=== PATIENT | male | born 1975 | race Caucasian/White ===

== ENCOUNTER 2020-01-02 11:24 | Emergency (ER) | payer BC, OTHER ==
[~2020-01-02] VITALS: Ht 185 cm; Wt 97.5 kg
[~2020-01-02 11:24] MED LIST: ATOR40TA PO; LORA1TAB PO; PROP40TA5 PO; SERT50TA PO
[2020-01-02] MEDS ORDERED: KETOROLAC 60 MG/2 ML VIAL IM STA (11:37)
--- NOTE | 2020-01-02 12:02 | ED Fall/Injury ---
General Chief Complaint: Upper Extremity Stated Complaint: COLLAR BONE INJ Nursing Triage Note: PT PRESENTS TO ED WITH COMPLAINTS OF R SHOULDER PAIN AFTER SLIPPING ON SOME ROCKS Source: patient Exam Limitations: no limitations History of Present Illness Date Seen by Provider: Jan 02, 2020 Time Seen by Provider: 11:31 Initial Comments Here with report of right clavicle, right shoulder and right rib pain after slipping on some rocks while playing [employer]. Notes pain increases with deep breathing. Also pain increases with movement of the right arm. He is splinting by holding arm in abduction against the chest. Denies head injury or other injuries. Occurred: just prior to arrival Severity: moderate Injuries/Pain Location: upper extremity, chest Context: slipped Loss of Consciousness: no loss of consciousness Modifying Factors: Improves With Immobilization; Worse With Movement Associated Symptoms (Fall): Chest Pain, Muscle Spasms; No Nausea/Vomiting, No Neck Pain, No Shortness of Air Allergies and Home Medications Allergies Coded Allergies: No Known Drug Allergies (Unverified , 12/04/12) Home Medications Atorvastatin Calcium 40 Mg Tablet, 1 EACH PO DAILY, (Reported) Lorazepam 1 Mg Tab, 1 EACH PO PRN, (Reported) Propranolol Hcl 40 Mg Tablet, 40 MG PO PRN, (Reported) Sertraline Hcl 50 Mg Tablet, 75 MG PO DAILY, (Reported) Patient Home Medication List Home Medication List Reviewed: Yes Review of Systems Review of Systems Constitutional: see HPI; No chills, No fever Respiratory: No dyspnea on exertion, No short of breath Cardiovascular: see HPI Gastrointestinal: No abdominal pain, No nausea, No vomiting Musculoskeletal: joint pain, muscle pain Skin: change in color, lesions (abrasion right shoulder) Psychiatric/Neurological: No Symptoms Reported Past Nyhaiyz-Vlmdtj-Ymcroz Hx Past Med/Social Hx: Reviewed Nursing Past Med/Soc Hx Patient Social History Alcohol Use: Denies Use Recreational Drug Use: No Smoking Status: Never a Smoker Recent Foreign Travel: No Contact w/Someone Who Travel: No Recent Infectious Disease Expo: No Recent Hopitalizations: No Physical Abuse: No Sexual Abuse: No Mistreated: No Fear: No Immunizations Up To Date Date of Pneumonia Vaccine: Jan 05, 2012 Date of Influenza Vaccine: Jan 05, 2012 Seasonal Allergies Seasonal Allergies: No Past Medical History Surgeries: No Respiratory: No Cardiac: Yes High Cholesterol, Hypertension Neurological: No Genitourinary: No Gastrointestinal: No Musculoskeletal: No Endocrine: No Cancer: No Psychosocial: Yes Anxiety Integumentary: No Blood Disorders: No Adverse Reaction/Blood Tranf: No Family Medical History Reviewed Nursing Family Hx Physical Exam Vital Signs Vital Signs - First Documented 01/02/20 11:38 Temp 35.5 Pulse 113 Resp 20 B/P (MAP) 152/108 (123) Pulse Ox 97 Capillary Refill : Less Than 3 Seconds Height, Weight, BMI Height: '" Weight: 193lbs. oz. kg; 28.00 BMI Method: General Appearance: WD/WN, mild distress (pain related) Neck: non-tender, full range of motion, supple, normal inspection Cardiovascular: regular rate, rhythm, no murmur Respiratory: lungs clear, normal breath sounds, other (TENDERNESS to right anterior lateral chest wall the low ribs.) Gastrointestinal: non tender, soft Back: no vertebral tenderness; No CVA tenderness (R), No CVA tenderness (L) Extremities: other (pain along the distal clavicle near shoulder. Painless any movement of arm at shoulder.) Neurologic/Psychiatric: alert, oriented x 3 Skin: warm/dry, other (abrasions to the posterior lateral aspect of right shoulder) [place] Coma Score Best Eye Response: (4) Open Spontaneously Best Verbal Response: (5) Oriented Best Motor Response: (6) Obeys Commands Progress/Results/Core Measures Results/Orders My Orders Orders - NELDA STEINBERG MD Ketorolac Injection (Toradol Injection) (01/02/20 11:37) Tramadol Tablet (Ultram Tablet) (01/02/20 11:37) Ribs/Unilateral With Chest (01/02/20 11:37) Clavicle, Right (01/02/20 11:37) Vital Signs/I&O 01/02/20 11:38 Temp 35.5 Pulse 113 Resp 20 B/P (MAP) 152/108 (123) Pulse Ox 97 Blood Pressure Mean: 123 Progress Progress Note : Progress Note Seen and evaluated. Toradol 60 mg IM and tramadol 50 mg by mouth. X-ray chest and right ribs as well as clavicle ordered. Sling ordered. Monitor patient. Diagnostic Imaging Diagonstic Imaging: Xray Plain Films/CT/US/NM/MRI: other Comments [facility]. [place], [place] NAME: SHANELL RICE MED REC#: [id number] PT STATUS: REG ER : 1975 PHYSICIAN: NELDA STEINBERG MD ADMIT DATE: 01/02/20/ER Draft Date of Exam:01/02/20 CLAVICLE, RIGHT Examination: Right clavicle two views. HISTORY: Trauma. COMPARISON: None available. FINDINGS: There is a displaced and overriding right clavicle fracture. IMPRESSION: 1. Displaced and overriding right clavicle fracture. Dictated on workstation # [id number] Dict: 01/02/20 1229 Trans: 01/02/20 1236 [facility] [id number] Interpreted by: DINORAH LEIVA MD Electronically signed by: Deboragonstic Imaging: Xray Plain Films/CT/US/NM/MRI: chest Comments [facility], [place] NAME: SHANELL RICE [facility] REC#: [id number] PT STATUS: REG ER : 1975 PHYSICIAN: NELDA STEINBERG MD ADMIT DATE: 01/02/20/ER Draft Date of Exam:01/02/20 RIBS/UNILATERAL WITH CHEST EXAMINATION: Right ribs two views and PA chest. HISTORY: Fall. COMPARISON: None available. FINDINGS: There is a midshaft right clavicle fracture with mild overriding. No rib fracture seen. Lungs are clear without edema or pneumonia. No pleural effusion or pneumothorax. IMPRESSION: 1. Midshaft right clavicle fracture with displacement and overriding. 2. No rib fracture. Dictated on workstation # [id number] Dict: 01/02/20 1228 Trans: 01/02/20 1235 [facility] [id number] Interpreted by: DINORAH LEIVA MD Electronically signed by: Departure Impression Primary Impression: Right clavicle fracture Qualified Codes: S42.021A - Displaced fracture of shaft of right clavicle, initial encounter for closed fracture Additional Impression: Contusion of right chest wall Qualified Codes: S20.211A - Contusion of right front wall of thorax, initial encounter Disposition: 01 HOME, SELF-CARE Condition: Stable Departure-Patient Inst. Decision time for Depature: 12:46 Referrals: ZAY DESHPANDE MD (PCP/Family) Primary Care Physician DINORAH FONTANA MD, MICHAEL P MD Patient Instructions: Clavicle Fracture (DC), Bruised Rib Add. Discharge Instructions: All discharge instructions reviewed with patient and/or family. Voiced understanding. Use sling at all times except when showering for the next few weeks and then as instructed or needed. You should follow-up with the orthopedist listed or of your choosing for recheck and further evaluation. You may take ibuprofen 600 mg every 8 hours as needed for pain. You may also take Tylenol/acetaminophen 1000 mg every 6-8 hours as needed for pain. Take other medications as directed. Return for worse pain, weakness, breathing problems, fever or other concerns as needed. Scripts Tramadol HCl (Tramadol HCl) 50 Mg Tablet 50 MG PO Q6H PRN for PAIN for 7 Days, #20 TAB 0 Refills Prov: NELDA STEINBERG MD 01/02/20 Copy Copies To 1: DINORAH FONTANA MD, TIMOTHY D MD Jan 02, 2020 12:02
--- NOTE | 2020-01-02 12:36 | Diagnostic Imaging Report ---
EXAMINATION: Right ribs two views and PA chest. HISTORY: Fall. COMPARISON: None available. FINDINGS: There is a midshaft right clavicle fracture with mild overriding. No rib fracture seen. Lungs are clear without edema or pneumonia. No pleural effusion or pneumothorax. IMPRESSION: 1. Midshaft right clavicle fracture with displacement and overriding. 2. No rib fracture. Dictated by: Dictated on workstation # [id number]
--- NOTE | 2020-01-02 12:36 | Diagnostic Imaging Report ---
Examination: Right clavicle two views. HISTORY: Trauma. COMPARISON: None available. FINDINGS: There is a displaced and overriding right clavicle fracture. IMPRESSION: 1. Displaced and overriding right clavicle fracture. Dictated by: Dictated on workstation # [id number]
[2020-01-02] MEDS ORDERED: TRM50T PO (12:49)
[2020-01-02 13:00] VITALS: BP 140/90
== END 2020-01-02 13:00 | disposition home or self-care (01) ==
LOC: EDUNIT# 11:24 → ER 11:25
DX: S42.021A Displaced fracture of shaft of right clavicle, initial encounter for closed fracture (principal); S20.211A Contusion of right front wall of thorax, initial encounter; E78.00 Pure hypercholesterolemia, unspecified; I10 Essential (primary) hypertension; F41.9 Anxiety disorder, unspecified; R40.2360 Coma scale, best motor response, obeys commands, unspecified time; R40.2140 Coma scale, eyes open, spontaneous, unspecified time; R40.2250 Coma scale, best verbal response, oriented, unspecified time; W01.0XXA Fall on same level from slipping, tripping and stumbling without subsequent striking against object, initial encounter
CPT/HCPCS: 71101; 73000; A4565